=== PATIENT | male | born 1990 | race African-American/Black ===

== ENCOUNTER 2025-04-15 16:49 | Emergency (ER) | payer SELFPAY ==
[2025-04-15 17:34] LABS: ALT/SGPT 38 U/L (16-61); AST/SGOT 28 U/L (15-37); Albumin 3.9 g/dL (3.4-5.0); Albumin/Globulin Ratio 1.3 (1.1-1.8); Alkaline Phosphatase 105 U/L (45-117); Anion Gap 5.4 mEq/L (5.0-15.0); BUN Blood Urea Nitrogen 12 mg/dL (7-18); Bicarbonate 30 mEq/L (21-32); Bilirubin Total 0.3 mg/dL (0.2-1.0); Glomerular Filtration Rate 89 ml/min (=/>90); Glucose Level 100 mg/dL (74-106); Potassium 4.4 mEq/L (3.5-5.1); Protein, Total 6.9 g/dL (6.4-8.2); Sodium Level 140 mEq/L (136-145); Troponin High Sensitivity 5.4 pg/mL (<58.9)
[2025-04-15 17:36] LABS: Bilirubin Direct < 0.2 mg/dL (0-0.2); Bilirubin Indirect, Calculated 0.1 mg/dL (0.2-0.8)
[2025-04-15 17:46] LABS: Absolute Basophils 0.1 K/uL (0-0.5); Absolute Eosinophils 0.1 K/uL (0-0.5); Absolute Lymphocytes (CBC) 2.1 K/uL (0.7-4.9); Absolute Monocytes 0.6 K/uL (0.1-1.3); Absolute Neutrophil 1.4 K/uL (1.8-8.0); Basophils % 1.2 % (0-1.3); Eosinophils % 2.5 % (0-4.4); Hematocrit 39.3 % (39.6-49.0); Hemoglobin 13.6 g/dL (13.6-17.9); Lymphocytes % 49.2 % (15.3-44.8); MCH 29.9 pg (27.0-35.0); MCHC 34.6 g/dL (32.0-36.0); MCV 86.4 fL (80-100); Monocytes % 14.1 % (3.3-12.3); Nucleated Red Blood Cells % 0.2 % (0-0); Platelets 196 thou/uL (152-406); RBC Red Blood Cell Count 4.55 M/uL (4.33-5.43); Red Cell Distribution Width 14.9 % (12.1-15.2)
--- NOTE | 2025-04-15 18:50 | RAD REPORT ---
EXAMINATION: ONE VIEW CHEST XR CLINICAL INDICATION: Male, 34 years old.,CHEST PAIN TECHNIQUE: Frontal chest projection is submitted. Examination is limited by patient positioning and t echnique. COMPARISON: No prior exam. FINDINGS: The lungs are well inflated and clear. No pneumothorax or sizable effusion. The heart is normal in s ize. Mediastinal contours are unremarkable. IMPRESSION: No acute intrathoracic abnormalities.
--- NOTE | 2025-04-15 19:02 | RAD REPORT ---
EXAM: CT Head Brain Wo Cont HISTORY: Dizziness;Headache COMPARISON: None TECHNIQUE: Multiple contiguous axial images were obtained for a CT of the brain without contrast. Sag ittal and coronal reformats were performed. One or more of the following dose reduction techniques were used: Automated exposure control, adjus tment of the mA and kV according to patient size, and iterative reconstruction. Unless otherwise specified, incidental findings do not require dedicated imaging follow-up. FINDINGS: No evidence of hydrocephalus, intracranial hemorrhage, or extra-axial fluid collection. The brain is normal in morphology. The calvarium is intact. The visualized paranasal sinuses and mastoid air cells are essentially clear . IMPRESSION: No evidence of acute intracranial abnormality.
--- NOTE | 2025-04-15 19:24 | ER ---
Nurse's Notes [facility] [place] Name: Oleg Wilson Age: 34 yrs Sex: Male : 1990 Arrival Date: 04/15/2025 Time: 16:49 Bed 14 Private MD: Diagnosis: Sciatica, left side;Chest pain, unspecified;Headache Presentation: 04/15 16:54 Chief complaint: EMS states: LEFT LEG NUMBNESS X 2 DAYS . STRAINED QUAD LEFT LEG 3 db WEEKS AGO. Coronavirus screen: Client denies travel out of the [place] in the last 14 days. At this time, the client does not indicate any symptoms associated with coronavirus-19. Ebola Screen: Patient negative for fever greater than or equal to 101.5 degrees Fahrenheit, and additional compatible Ebola Virus Disease symptoms Patient denies exposure to infectious person. Patient denies travel to an Ebola-affected area in the 21 days before illness onset. No symptoms or risks identified at this time. Initial Sepsis Screen: Does the patient meet any 2 criteria? No. Patient's initial sepsis screen is negative. Does the patient have a suspected source of infection? No. Patient's initial sepsis screen is negative. Risk Assessment: Do you want to hurt yourself or someone else? Patient reports no desire to harm self or others. Onset of symptoms was April 15, 2025. 16:54 Method Of Arrival: EMS: [facility] db 16:54 Acuity: KASHIF 3 db Triage Assessment: 16:55 General: Appears in no apparent distress. uncomfortable, Behavior is calm, cooperative. db Pain: Complains of pain in left leg. Neuro: Level of Consciousness is awake, alert, obeys commands, Oriented to person, place, time, situation. Respiratory: Airway is patent Respiratory effort is even, unlabored, Respiratory pattern is regular, symmetrical. Historical: - Allergies: 16:55 No Known Allergies; db - PMHx: 16:55 GASTRIC ULCERS; db - Immunization history:: Adult Immunizations unknown. - Infectious Disease History:: Denies. - Social history:: Smoking status: Patient reports the use of cigarette tobacco products, smokes one-half pack cigarettes per day. Screenin:15 [facility] ED Fall Risk Assessment (Adult) History of falling in the last 3 months, kj2 including since admission No falls in past 3 months (0 pts) Confusion or Disorientation No (0 pts) Intoxicated or Sedated No (0 pts) Impaired Gait No (0 pts) Mobility Assist Device Used No (0 pt) Altered Elimination No (0 pt) Score/Fall Risk Level 0 - 2 = Low Risk Maintained a safe environment, Hourly rounding (assess needs \T\ fall precautionary measures) done. Abuse screen: Denies threats or abuse. Denies injuries from another. Nutritional screening: No deficits noted. Tuberculosis screening: No symptoms or risk factors identified. Assessment: 18:15 General: Appears in no apparent distress. uncomfortable, Behavior is cooperative. Pain: kj2 Complains of pain in left leg Pain currently is 8 out of 10 on a pain scale. Neuro: Level of Consciousness is awake, alert, obeys commands, Oriented to person, place, time, situation. Cardiovascular: Patient's skin is warm and dry. Respiratory: Airway is patent Respiratory effort is even, unlabored. GI: No signs and/or symptoms were reported involving the gastrointestinal system. : No signs and/or symptoms were reported regarding the genitourinary system. 18:53 Reassessment: Patient appears in no apparent distress at this time. Patient and/or kj2 family updated on plan of care and expected duration. Pain level reassessed. Patient is alert, oriented x 3, equal unlabored respirations, skin warm/dry/pink. 19:25 Reassessment: Patient appears in no apparent distress at this time. Patient and/or kj2 family updated on plan of care and expected duration. Pain level reassessed. Patient is alert, oriented x 3, equal unlabored respirations, skin warm/dry/pink. 19:46 Reassessment: Patient appears in no apparent distress at this time. Patient and/or kj2 family updated on plan of care and expected duration. Pain level reassessed. Patient is alert, oriented x 3, equal unlabored respirations, skin warm/dry/pink. 20:00 Reassessment: awaiting transportation to [facility]. kj2 20:35 Reassessment: transportation arrived. [facility] Vital Signs: 16:54 BP 143 / 86; Pulse 70; Resp 16; Temp 98.1; Pulse Ox 96% ; Weight 96.16 kg; Height 6 ft. db 0 in. ; 18:52 BP 145 / 73; Pulse 60; Resp 18; Pulse Ox 100% ; kj2 19:26 BP 134 / 90; Pulse 57; Resp 20; Temp 98; Pulse Ox 100% ; kj2 16:54 Body Mass Index 28.75 (96.16 kg, 182.88 cm) db ED Course: 16:51 Patient arrived in ED. kb 16:51 [facility]C [facility] kb 16:51 Paramjit Gilliam DO is Attending Physician. kb 16:55 Triage completed. db 16:55 Arm band placed on. db 17:08 Basic Metabolic Panel Sent. bc6 17:08 CBC with Diff Sent. bc6 17:08 LFT's Sent. bc6 17:08 Magnesium Sent. bc6 17:08 Troponin HS Sent. bc6 17:08 Initial lab(s) drawn, by me, sent to lab. Inserted saline lock: 20 gauge in left bc6 antecubital area, using aseptic technique. Blood collected. Flushed with 10 mL NS. 17:14 XRAY Chest (1 view) In Process Unspecified. EDMS 17:19 CT Head Brain wo Cont In Process Unspecified. EDMS 18:15 Patient has correct armband on for positive identification. Provided Education on: call kj2 light. 18:21 Rebekah Alegria, RN is Primary Nurse. kj2 19:48 No provider procedures requiring assistance completed. IV discontinued, intact, kj2 bleeding controlled, No redness/swelling at site. Pressure dressing applied. Administered Medications: 19:35 Drug: Decadron - Dexamethasone IVP 10 mg IVP once Route: IVP; Site: left antecubital; kj2 19:47 Follow up: Response: Medication administered at discharge. kj2 19:35 Drug: Ketorolac IVP 15 mg IVP once Route: IVP; Site: left antecubital; kj2 19:47 Follow up: Response: Medication administered at discharge. kj2 Medication: 18:36 VIS not applicable for this client. kj2 Outcome: 19:23 Discharge ordered by . kb 19:48 Discharged to home ambulatory, kj2 19:48 Condition: stable 19:48 Discharge instructions given to patient, Instructed on discharge instructions, follow up and referral plans. Demonstrated understanding of instructions, follow-up care, 20:36 Patient left the ED. kj2 Signatures: Dispatcher [employer] EDMS Roselia Cheek FNP-C PHOTOGRAPHY COORDINATOR-Ckb Roz Sanchez, RN RN db Heidi King bc6 Rebekah Alegria, RN RN kj2
--- NOTE | 2025-04-15 19:24 | EDPHYS ---
Physician Documentation [facility] Name: Oleg Wilson Age: 34 yrs Sex: Male : 1990 Arrival Date: 04/15/2025 Time: 16:49 Bed 14 Private MD: ED Physician Paramjit Gilliam HPI: 04/15 17:50 This 34 yrs old Male presents to ER via EMS with complaints of Leg Pain. kb 17:50 Patient is a 34-year-old male who presents for 2 to 3-day history of numbness and kb intermittent sharp pain to left lower extremity. Also reports having headaches to the left side of his head for the past several weeks. States he is concerned about this due to previous head injury. States he also had some chest pain and dizziness yesterday upon standing. States it went away but he did have chest pain this morning as well. Currently has no dizziness, chest pain or headaches.. Historical: - Allergies: 16:55 No Known Allergies; db - PMHx: 16:55 GASTRIC ULCERS; db - Immunization history:: Adult Immunizations unknown. - Infectious Disease History:: Denies. - Social history:: Smoking status: Patient reports the use of cigarette tobacco products, smokes one-half pack cigarettes per day. ROS: 17:54 Constitutional: As per HPI kb Exam: 18:50 Constitutional: This is a well developed, well nourished patient who is awake, alert, kb and in no acute distress. Head/Face: Normocephalic, atraumatic. ENT: Moist Mucous membranes Cardiovascular: Regular rate Respiratory: Respirations even and unlabored. No increased work of breathing. Talking in full sentences Abdomen/GI: Soft, non-tender. No distention Skin: Warm, dry with normal turgor. Normal color. MS/ Extremity: Pulses equal, no cyanosis. Neurovascular intact. Full, normal range of motion. Neuro: Awake and alert, GCS 15, oriented to person, place, time, and situation. 18:50 ECG was reviewed by the Attending Physician. 18:50 Back: pain, that is moderate, of the left low back, Vital Signs: 16:54 BP 143 / 86; Pulse 70; Resp 16; Temp 98.1; Pulse Ox 96% ; Weight 96.16 kg; Height 6 ft. db 0 in. ; 18:52 BP 145 / 73; Pulse 60; Resp 18; Pulse Ox 100% ; kj2 19:26 BP 134 / 90; Pulse 57; Resp 20; Temp 98; Pulse Ox 100% ; kj2 16:54 Body Mass Index 28.75 (96.16 kg, 182.88 cm) db MDM: 16:51 Medical Screening Exam initiated kb 19:20 Differential diagnosis: acute mi, arrhythmia, PVD, sciatica. Data reviewed: vital kb signs, nurses notes. Historians other than the Patient: EMS: [facility]. Counseling: I had a detailed discussion with the patient and/or guardian regarding the historical points, exam findings, and any diagnostic results supporting the discharge/admit diagnosis, lab results, radiology results, the need for outpatient follow up, a family practitioner, a neurologist, to return to the emergency department if symptoms worsen or persist or if there are any questions or concerns that arise at home. 04/15 16:52 Order name: Basic Metabolic Panel; Complete Time: 17:37 kb 04/15 16:52 Order name: CBC with Diff; Complete Time: 17:48 kb 04/15 16:52 Order name: LFT's; Complete Time: 17:37 kb 04/15 16:52 Order name: Magnesium; Complete Time: 17:37 kb 04/15 16:52 Order name: Troponin HS; Complete Time: 17:37 kb 04/15 16:52 Order name: XRAY Chest (1 view); Complete Time: 18:57 kb 04/15 16:52 Order name: CT Head Brain wo Cont; Complete Time: 19:06 kb 04/15 16:52 Order name: Cardiac monitoring; Complete Time: 18:47 kb 04/15 16:52 Order name: EKG - Nurse/Tech; Complete Time: 18:34 kb 04/15 16:52 Order name: IV Saline Lock; Complete Time: 17:08 kb 04/15 16:52 Order name: Labs collected and sent; Complete Time: 17:08 kb 04/15 16:52 Order name: O2 Per Protocol; Complete Time: 18:34 kb 04/15 16:52 Order name: O2 Sat Monitoring; Complete Time: 18:34 kb EC:50 Rate is 62 beats/min. Rhythm is regular. QRS [place] is Normal. ID interval is normal at kb 142 msec. QRS interval is normal at 86 msec. QT interval is normal at 420 msec. Administered Medications: 19:35 Drug: Decadron - Dexamethasone IVP 10 mg IVP once Route: IVP; Site: left antecubital; kj2 19:47 Follow up: Response: Medication administered at discharge. kj2 19:35 Drug: Ketorolac IVP 15 mg IVP once Route: IVP; Site: left antecubital; kj2 19:47 Follow up: Response: Medication administered at discharge. kj2 Disposition: 20:35 I was immediately available on-site in the Emergency Department for consultation in the ms3 care of the patient. Disposition Summary: 04/15/25 19:23 Discharge Ordered Notes: Location: Home kb Condition: Stable kb Diagnosis - Sciatica, left side kb - Chest pain, unspecified kb - Headache kb Followup: kb - With: Emergency Department - When: As needed - Reason: Worsening of condition Followup: kb - With: Private Physician - When: 2 - 3 days - Reason: Recheck today's complaints, Continuance of care, Re-evaluation by your physician Discharge Instructions: - Discharge Summary Sheet kb - Nonspecific Chest Pain, Adult, [id number] kb - Sciatica, [id number] kb - General Headache Without Cause, [id number] kb Forms: - Medication Reconciliation Form kb - Antibiotic Education kb - Prescription Opioid Use kb - Patient Portal Instructions kb - Leadership Thank You Letter kb Prescriptions: - Neurontin 300 mg Oral capsule - take 1 capsule ORAL route At bedtime; 7 capsule; Refills: 0, Product Selection kb Permitted - Prednisone 20 mg Oral Tablet - take 1 tablet ORAL route once daily for 5 days; 5 tablet; Refills: 0, Product kb Selection Permitted Signatures: Dispatcher [employer] EDMS Roselia Cheek, ROSA-C BOXING MACHINE OPERATOR-Paramjit Steve DO DO ms3 Roz Sanchez RN RN db Reebkah Alegria RN RN kj2 Corrections: (The following items were deleted from the chart) 16:53 16:53 BASIC METABOLIC PANEL+C.LAB.BRZ ordered. EDMS EDMS 16:53 16:53 CBC+H.LAB.BRZ ordered. EDMS EDMS 16:53 16:53 HEPATIC FUNCTION+C.LAB.BRZ ordered. EDMS EDMS 16:53 16:53 MAGNESIUM+C.LAB.BRZ ordered. EDMS EDMS 16:53 16:53 Troponin High Sensitivity+C.LAB.BRZ ordered. EDMS EDMS 16:53 16:53 Chest Single View+RAD.RAD.BRZ ordered. EDMS EDMS 16:53 16:53 Head Brain Wo Cont+CT.RAD.BRZ ordered. EDMS EDMS 17:54 17:50 Patient is a 34-year-old male who presents for 2 to 3-day history of numbness and kb intermittent sharp pain. kb
[2025-04-15] MEDS ORDERED: dexAMETHasone 10 MG/ML VIAL ONE (19:29)
[2025-04-15] MEDS ORDERED: KETOROLAC 30 MG/ML INJ ONE (19:29)
--- OUTSIDE RECORDS SUMMARY | 2025-04-15 21:20 | XMS REPORT | Continuity of Care Document ---
Author Name Unknown Address [address] [place] [address] [address] [place] [address] [facility] Address [address] [facility] [address] [place] [address] Care Team Providers Care Reexaminer Name Role Phone SERGEI CARBALLO Attending Clinician UnavailKRIS Wasserman Attending Clinician Unavailable ELIAS ESTEBAN Attending Clinician UnavailSOLOMON Melara Attending Clinician Unavailable KRIS CARLISLE Admitting Clinician Unavailable SOLOMON SINGH Admitting Clinician Unavailable Payers Payer Name Policy Type Policy Number Effective Date Expirati on Date Source [facility] [id number] 2025 00:00:00 Encounters Start Date/Time End Date/Time Encounter Type Admission Type Attending Clinicians Care Facility Care Department Encounter ID Source 2025-03-08 12:00:00 Inpatient [facility]RA H[facility] [id number] [facility] 2025-04-01 13:10:59 2025-04-01 13:10:[address] [facility] [id number] Quirino Tejeda 2025-04-01 00:00:00 2025-04-01 00:00:00 Outpatient SERGEI CARBALLO [facility] [id number] [facility] 2025-03-08 11:13:00 2025-03-20 10:06:00 Outpatient KRIS CARLISLE [facility] [id number] [facility] 2025-03-06 21:49:00 2025-03-08 11:03:00 Emergency ELIAS ESTEBAN [facility] [id number] [facility] 2025-03-07 10:25:13 2025-03-07 10:25:13 Emergency [facility] [id number] [facility] 2025-03-06 22:17:04 2025-03-06 22:57:12 Emergency [facility] [id number] [facility] 2024-12-04 20:53:00 2024-12-09 14:38:00 Outpatient SOLOMON SINGH [facility] [id number] [facility] 2024-12-04 13:00:00 2024-12-09 12:00:00 [facility] [id number] [facility] 2019-11-04 19:39:00 2019-11-04 19:39:00 Emergency E MHNE MHNE [id number] [facility]
[2025-04-15 21:31] VITALS: O2SAT 100
[2025-04-15 21:32] VITALS: BP 134/90; TEMP 98
== END 2025-04-15 20:36 | disposition home or self-care (01) ==
LOC: ER 16:49
DX: M54.32 Sciatica, left side (principal); R07.9 Chest pain, unspecified; R51.9 Headache, unspecified; F17.210 Nicotine dependence, cigarettes, uncomplicated
CPT/HCPCS: 36415; 70450; 71045; 80048; 80076; 83735; 84484; 85025; 93005; J1100

== ENCOUNTER 2025-04-20 03:57 | Emergency (ER) | payer SELFPAY ==
--- OUTSIDE RECORDS SUMMARY | 2025-04-20 04:00 | XMS REPORT | Continuity of Care Document ---
Author Name Unknown Address [address] [place] [address] [address] [place] [address] [facility] [place] Address [address] [facility]. [address] [place] [address] Care Team Providers Care Data Input Clerk Name Role Phone SERGEI CARBALLO Attending Clinician UnavailKRIS Wasserman Attending Clinician Unavailable ELIAS ESTEBAN Attending Clinician UnavailSOLOMON Melara Attending Clinician Unavailable KRIS CARLISLE Admitting Clinician Unavailable SOLOMON SINGH Admitting Clinician Unavailable Payers Payer Name Policy Type Policy Number Effective Date Expirati on Date Source [facility] [id number] 2025 00:00:00 Encounters Start Date/Time End Date/Time Encounter Type Admission Type Attending Clinicians Care Facility Care Department Encounter ID Source 2025-03-08 12:00:00 Inpatient HHMHMRA HHM[facility]RA [id number] [facility] 2025-04-01 13:10:59 2025-04-01 13:10:59 Outpatient [facility] [id number] Quirino Tejeda 2025-04-01 00:00:00 2025-04-01 00:00:00 Outpatient SERGEI CARBALLO [facility] [id number] [facility] 2025-03-08 11:13:00 2025-03-20 10:06:00 Outpatient KRIS CARLISLE [facility] [id number] [facility] 2025-03-06 21:49:00 2025-03-08 11:03:00 Emergency ELIAS ESTEBAN [facility] [id number] [facility] 2025-03-07 10:25:13 2025-03-07 10:25:13 Emergency [facility] [id number] [facility] 2025-03-06 22:17:04 2025-03-06 22:57:12 Emergency [facility] [id number] [facility] 2024-12-04 20:53:00 2024-12-09 14:38:00 Outpatient SOLOMON SINGH [facility] [id number] [facility] 2024-12-04 13:00:00 2024-12-09 12:00:00 Inpatient [facility] [id number] [facility] 2019-11-04 19:39:00 2019-11-04 19:39:00 Emergency E MHNE MHNE 7502 MHNE
[2025-04-20] MEDS ORDERED: METHYLPREDNISOLONE 125 MG INJ ONE (04:23)
[2025-04-20] MEDS ORDERED: ALBUTEROL 2.5 MG/3 ML NEB SOL ONE ×2 (04:23→07:46)
[2025-04-20] MEDS ORDERED: IPRATROPIUM BROM 0.5MG/2.5ML ONE ×2 (04:23→07:46)
[2025-04-20] MEDS ORDERED: DIPHENHYDRAMINE 50 MG/ML VIAL ONE (04:24)
[2025-04-20] MEDS ORDERED: Magnesium Sulfate 2gm IVPB 2 G/50 ML BAG IV ONE (04:24)
[2025-04-20] MEDS ORDERED: KETOROLAC 30 MG/ML INJ ONE (04:24)
[2025-04-20] MEDS ORDERED: GUAIFENESIN/DM 5 ML UCUP ONE (04:24)
[2025-04-20 04:46] LABS: ALT/SGPT 43 U/L (16-61); AST/SGOT 64 U/L (15-37); Albumin 3.5 g/dL (3.4-5.0); Albumin/Globulin Ratio 1.1 (1.1-1.8); Alkaline Phosphatase 94 U/L (45-117); Anion Gap 6.8 mEq/L (5.0-15.0); BUN Blood Urea Nitrogen 10 mg/dL (7-18); Bicarbonate 29 mEq/L (21-32); Bilirubin Total 0.3 mg/dL (0.2-1.0); Globulin 3.1 g/dL (2.3-3.5); Glomerular Filtration Rate 102 ml/min (=/>90); Glucose Level 79 mg/dL (74-106); Potassium 3.8 mEq/L (3.5-5.1); Protein, Total 6.6 g/dL (6.4-8.2); Sodium Level 140 mEq/L (136-145)
[2025-04-20 05:02] LABS: Absolute Basophils 0.1 K/uL (0-0.5); Absolute Eosinophils 0.1 K/uL (0-0.5); Absolute Lymphocytes (CBC) 1.7 K/uL (0.7-4.9); Absolute Monocytes 0.9 K/uL (0.1-1.3); Basophils % 0.9 % (0-1.3); Eosinophils % 2.1 % (0-4.4); Hematocrit 39.5 % (39.6-49.0); Hemoglobin 13.7 g/dL (13.6-17.9); Lymphocytes % 29.4 % (15.3-44.8); MCHC 34.6 g/dL (32.0-36.0); MCV 86.8 fL (80-100); Monocytes % 15.5 % (3.3-12.3); Neutrophils % 52.1 % (41.7-73.7); Nucleated Red Blood Cells % 0.1 % (0-0); Platelets 177 thou/uL (152-406); RBC Red Blood Cell Count 4.55 M/uL (4.33-5.43); Red Cell Distribution Width 14.8 % (12.1-15.2)
[2025-04-20 05:06] LABS: Bilirubin Direct < 0.2 mg/dL (0-0.2); Bilirubin Indirect, Calculated 0.1 mg/dL (0.2-0.8)
--- NOTE | 2025-04-20 06:00 | RAD REPORT ---
EXAM DESCRIPTION: Chest Single View RadLex: XR CHEST 1 VIEW CLINICAL HISTORY: 34 years Male, CHEST PAIN COMPARISON: None. FINDINGS: Single portable AP upright view of the chest. Cardiac silhouette is not significantly enlarged given AP technique. No consolidation. No pleural effusion or pneumothorax. No acute osseous abnormality. IMPRESSION: No acute radiographic abnormality. Electronically signed by: Elizabeth Farmer MD 04/20/2025 05:30 AM CDT RP Due to temporary technical issues with the PACS/[employer] reporting system, reports are being tim d by the in-house radiologist without review as a courtesy to ensure prompt reporting the interpreting radiologist is fully responsible for the content of the report. Transcribed Date/Time: 04/20/2025 6:00 AM
--- NOTE | 2025-04-20 07:09 | EDPHYS ---
Physician Documentation [facility] Name: Oleg Wilson Age: 34 yrs Sex: Male : 1990 Arrival Date: 04/20/2025 Time: 03:57 Bed 7 Private MD: ED Physician Casey Atkins HPI: 04/20 04:10 This 34 yrs old Black Male presents to ER via EMS with complaints of Breathing sp4 Difficulty. 04:43 34-year-old male presents with acute breathing difficulty from [facility] to sp4 rehab. Patient states he has been there for 30 days. 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 Patient reported 3 days of difficulty breathing, wheezing, throat discomfort. Sensation of closing throat as well.. 04/21 03:56 Patient presents with acute onset wheezing and respiratory trouble. sp4 Historical: - Allergies: 04/20 04:03 No Known Allergies; bm8 - Home Meds: 04:03 gabapentin 300 mg oral capsule 1 cap daily [Active]; Seroquel 300 mg Oral tablet 1 tab bm8 daily [Active]; - PMHx: 04:03 gastric ulcers; Bipolar disorder; bm8 - PSHx: 04:03 None; bm8 - Immunization history:: Adult Immunizations up to date. - Infectious Disease History:: Denies. - Social history:: Smoking status: Patient reports the use of cigarette tobacco products, smokes one-half pack cigarettes per day, Patient/guardian denies using alcohol, street drugs. - Family history:: not pertinent. ROS: 04:43 Constitutional: Negative for fever, chills, and weight loss, positive dyspnea, positive sp4 sensation of closing throat, positive sore throat, positive wheezing 04:43 All other systems are negative, Exam: 04:43 Constitutional: This is a well developed, well nourished patient who is awake, alert, sp4 and in no acute distress. Head/Face: Normocephalic, atraumatic. Eyes: Pupils equal round and reactive to light, extra-ocular motions intact. Lids and lashes normal. Conjunctiva and sclera are not injected. Cornea within normal limits. Periorbital areas with no swelling, redness, or edema. ENT: Nares patent. No nasal discharge, no septal abnormalities noted. Tympanic membranes are normal and external auditory canals are clear. Oropharynx with bilateral pharyngeal erythema without tonsillar enlargement. No sign of exudate. Neck: Trachea midline, no thyromegaly or masses palpated, and no cervical lymphadenopathy. Supple, full range of motion without nuchal rigidity, or vertebral point tenderness. Chest/axilla: Normal chest wall appearance and motion. Nontender with no deformity. No lesions are appreciated. Cardiovascular: Regular rate and rhythm with a normal S1 and S2. No gallops, murmurs, or rubs. Normal PMI, no JVD. No pulse deficits. Respiratory: Lungs have equal breath sounds bilaterally, positive bilateral expiratory wheezes in all lung cannon that are mild to moderate. Abdomen/GI: Soft, with normal bowel sounds. No distension or tympany. No guarding or rebound. No evidence of tenderness throughout. Back: No spinal tenderness. No costovertebral tenderness. Skin: Warm, dry with normal turgor. Normal color with no rashes, no lesions, and no evidence of cellulitis. MS/ Extremity: Pulses equal, no cyanosis. Neurovascular intact. Full, normal range of motion. Neuro: Awake and alert, GCS 15, oriented to person, place, time, and situation. Cranial nerves II-XII grossly intact. Motor strength 5/5 in all extremities. Sensory grossly intact. Psych: Awake, alert, with orientation to person, place and time. Behavior, mood, and affect are within normal limits Vital Signs: 04:01 BP 143 / 83; Pulse 68; Resp 14; Temp 99.3; Pulse Ox 100% ; Weight 96.62 kg; Height 6 bm8 ft. 0 in. ; Pain 0/10; 05:38 BP 135 / 77; Pulse 87; Resp 18; Temp 99.3; Pulse Ox 99% on R/A; Pain 0/10; bm8 06:51 BP 139 / 70; Pulse 83; Resp 17; Pulse Ox 95% ; bm8 07:08 BP 121 / 70; Pulse 96; Resp 20; Temp 99.3; Pulse Ox 100% ; Pain 0/10; bm8 08:28 BP 135 / 72; Pulse 85; Resp 18; Pulse Ox 99% ; bp 04:01 Body Mass Index 28.89 (96.62 kg, 182.88 cm) 8 04:01 Pain Scale: Adult bm8 05:38 Pain Scale: Adult bm8 07:08 Pain Scale: Adult bm8 Bry Coma Score: 04:07 Eye Response: spontaneous(4). Motor Response: obeys commands(6). Verbal Response: bm8 oriented(5). Total: 15. 04:43 Eye Response: spontaneous(4). Motor Response: obeys commands(6). Verbal Response: sp4 oriented(5). Total: 15. 05:38 Eye Response: spontaneous(4). Motor Response: obeys commands(6). Verbal Response: bm8 oriented(5). Total: 15. 07:08 Eye Response: spontaneous(4). Motor Response: obeys commands(6). Verbal Response: bm8 oriented(5). Total: 15. MDM: 06:45 Medical Screening Exam initiated 04/21 03:56 Differential diagnosis: Anxiety Reaction asthma, Bronchitis Chronic Obstructive sp4 Pulmonary Disease pneumonia, Psychogenic. Data reviewed: vital signs, nurses notes, lab test result(s). 03:57 Data reviewed: radiologic studies. ED course: Wheezing has resolved. Patient stable for 4 discharge home. 04/20 04:08 Order name: Basic Metabolic Panel; Complete Time: 07:02 [facility] 04/20 04:08 Order name: CBC with Diff; Complete Time: 07:02 [facility] 04/20 04:08 Order name: LFT's; Complete Time: 07:02 [facility] 04/20 04:08 Order name: XRAY Chest (1 view); Complete Time: 07:02 [facility] 04/20 04:08 Order name: IV Saline Lock; Complete Time: 04:35 [facility] 04/20 04:08 Order name: Labs collected and sent; Complete Time: 04:36 [facility] 04/20 04:08 Order name: O2 Per Protocol; Complete Time: 04:36 [facility] 04/20 04:08 Order name: O2 Sat Monitoring; Complete Time: 04:36 4 Administered Medications: 04/20 04:34 Drug: Ketorolac IVP 30 mg IVP once Route: IVP; Site: right antecubital; bm8 05:37 Follow up: Response: No adverse reaction bm8 04:34 Drug: diphenhydrAMINE IVP 25 mg IVP once Route: IVP; Site: right antecubital; bm8 05:36 Follow up: Response: No adverse reaction bm8 04:35 Drug: Magnesium Sulfate IVPB 2 grams IVPB once over 2 hrs Route: IVPB; Infused Over: 2 bm8 hrs; Site: right antecubital; 05:38 Follow up: Response: No adverse reaction; IV Status: Completed infusion bm8 04:35 Drug: Albuterol Inhalation 2.5 mg Inhalation every 20 minutes x3 Route: Inhalation; bm8 04:35 Drug: Ipratropium Inhalation Aerosol 0.5 mg Inhalation once; Every 20 min for a total bm8 of 3 treatments x3 Route: Inhalation; 04:35 Drug: MethylPREDNISolone Sodium Succinate IM 125 mg IM once Route: IM; Site: right bm8 deltoid; 05:37 Follow up: Response: No adverse reaction bm8 04:35 Drug: Dextromethorphan-Guaifenesin PO Liquid 10 mg-100 mg/5 mL 10 ml PO once Route: PO; bm8 05:37 Follow up: Response: No adverse reaction bm8 05:03 Drug: Albuterol Inhalation 2.5 mg Inhalation every 20 minutes x3 Route: Inhalation; bm8 05:03 Drug: Ipratropium Inhalation Aerosol 0.5 mg Inhalation once; Every 20 min for a total bm8 of 3 treatments x3 Route: Inhalation; 05:20 Drug: Albuterol Inhalation 2.5 mg Inhalation every 20 minutes x3 Route: Inhalation; bm8 05:37 Follow up: Response: No adverse reaction bm8 05:20 Drug: Ipratropium Inhalation Aerosol 0.5 mg Inhalation once; Every 20 min for a total bm8 of 3 treatments x3 Route: Inhalation; 05:37 Follow up: Response: No adverse reaction bm8 07:30 Drug: Albuterol Inhalation 2.5 mg Inhalation once Route: Inhalation; bp 07:30 Drug: Ipratropium Inhalation Aerosol 0.5 mg Inhalation once Route: Inhalation; bp Disposition: 04/21 03:57 Chart complete. sp4 Disposition Summary: 04/20/25 07:08 Discharge Ordered Notes: Location: Home sp4 Problem: new sp4 Symptoms: have improved sp4 Condition: Stable sp4 Diagnosis - Acute wheezing, acute viral bronchitis, acute viral upper respiratory infection sp4 - Wheezing sp4 Followup: sp4 - With: Private Physician - When: 7 - 10 days - Reason: Recheck today's complaints Discharge Instructions: - Discharge Summary Sheet sp4 - Viral Respiratory Infection sp4 Forms: - Patient Portal Instructions sp4 Prescriptions: - Nebulizer with Adult Mask - 0 Dispense One Nebulizer with adult mask , use with albuterol as directed; ; sp4 Refills: 0, Product Selection Permitted - dextromethorphan-guaifenesin 20-400 mg Oral tablet - take 1 tablet ORAL route every 4 hours as needed for cough; 60 tablet; Refills: sp4 0, Product Selection Permitted - Albuterol Sulfate 2.5 mg /3 mL (0.083 %) Inhalation Solution for Nebulization - inhale 1 unit NEBULIZATION route every 8 hours As needed 50 vials , Use sp4 Nebulized every 4 hours PNR wheezing; 50 unit; Refills: 0, Product Selection Permitted - Prednisone 20 mg Oral Tablet - take 2 tablets ORAL route once daily for 5 days; 10 tablet; Refills: 0, Product sp4 Selection Permitted Signatures: Dispatcher [employer] Braydon Marie, RN RN bp Casey Atkins MD MD sp4 Bj Black RN RN bm8 Corrections: (The following items were deleted from the chart) 04/20 04:09 04:09 BASIC METABOLIC PANEL+C.LAB.BRZ ordered. EDMS EDMS 04:09 04:09 CBC+H.LAB.BRZ ordered. EDMS EDMS 04:09 04:09 HEPATIC FUNCTION+C.LAB.BRZ ordered. EDMS EDMS
--- NOTE | 2025-04-20 07:09 | ER ---
Nurse's Notes [facility] Name: Oleg Wilson Age: 34 yrs Sex: Male : 1990 Arrival Date: 04/20/2025 Time: 03:57 Bed 7 Private MD: Diagnosis: Acute wheezing, acute viral bronchitis, acute viral upper respiratory infection;Wheezing Presentation: 04/20 04:01 Chief complaint: Patient states: I have had shortness of breath for 2 days with n/v , bm8 chills, and muscle cramps. Coronavirus screen: At this time, the client does not indicate any symptoms associated with coronavirus-19. Ebola Screen: Patient negative for fever greater than or equal to 101.5 degrees Fahrenheit, and additional compatible Ebola Virus Disease symptoms Patient denies exposure to infectious person. Patient denies travel to an Ebola-affected area in the 21 days before illness onset. No symptoms or risks identified at this time. Initial Sepsis Screen: Does the patient meet any 2 criteria? No. Patient's initial sepsis screen is negative. Does the patient have a suspected source of infection? No. Patient's initial sepsis screen is negative. Risk Assessment: Do you want to hurt yourself or someone else? Patient reports no desire to harm self or others. Onset of symptoms was April 18, 2025. 04:01 Method Of Arrival: EMS: [facility] bm8 04:01 Acuity: KASHIF 2 bm8 Triage Assessment: 04:03 General: Appears in no apparent distress. comfortable, Behavior is calm, cooperative, bm8 appropriate for age. Pain: Denies pain. EENT: No deficits noted. No signs and/or symptoms were reported regarding the EENT system. Neuro: No deficits noted. Level of Consciousness is awake, alert, obeys commands, Oriented to person, place, time, situation, Appropriate for age. Cardiovascular: Reports shortness of breath, Denies chest pain, Heart tones S1 S2 present. Respiratory: Reports shortness of breath cough that is Breath sounds with crackles bilaterally. Onset: The symptoms/episode began/occurred 2 days, the patient has moderate shortness of breath. GI: Reports nausea, vomiting. : No signs and/or symptoms were reported regarding the genitourinary system. Derm: No signs and/or symptoms reported regarding the dermatologic system. Musculoskeletal: No signs and/or symptoms reported regarding the musculoskeletal system. Historical: - Allergies: 04:03 No Known Allergies; bm8 - Home Meds: 04:03 gabapentin 300 mg oral capsule 1 cap daily [Active]; Seroquel 300 mg Oral tablet 1 tab bm8 daily [Active]; - PMHx: 04:03 gastric ulcers; Bipolar disorder; bm8 - PSHx: 04:03 None; bm8 - Immunization history:: Adult Immunizations up to date. - Infectious Disease History:: Denies. - Social history:: Smoking status: Patient reports the use of cigarette tobacco products, smokes one-half pack cigarettes per day, Patient/guardian denies using alcohol, street drugs. - Family history:: not pertinent. Screenin:07 [facility] ED Fall Risk Assessment (Adult) History of falling in the last 3 months, bm8 including since admission No falls in past 3 months (0 pts) Confusion or Disorientation No (0 pts) Intoxicated or Sedated No (0 pts) Impaired Gait No (0 pts) Mobility Assist Device Used No (0 pt) Altered Elimination No (0 pt) Score/Fall Risk Level 0 - 2 = Low Risk Oriented to surroundings, Maintained a safe environment, Educated pt \T\ family on fall prevention, incl call for assistance when getting out of bed, Provided non-skid footwear, Hourly rounding (assess needs \T\ fall precautionary measures) done, Used ambulatory aids as needed (educated on \T\ assisted with), Used gait belt as appropriate. Abuse screen: Denies threats or abuse. Nutritional screening: No deficits noted. Tuberculosis screening: No symptoms or risk factors identified. Assessment: 04:07 Cardiovascular: Rhythm is sinus rhythm. bm8 05:38 Reassessment: Patient appears in no apparent distress at this time. Patient and/or bm8 family updated on plan of care and expected duration. Pain level reassessed. Patient is alert, oriented x 3, equal unlabored respirations, skin warm/dry/pink. Patient denies pain at this time. Patient states feeling better. Patient states symptoms have improved. Neuro: No deficits noted. Level of Consciousness is awake, alert, obeys commands, Oriented to person, place, time, situation, Appropriate for age. Cardiovascular: Denies chest pain, Heart tones S1 S2 present Capillary refill < 3 seconds in bilateral fingers Patient's skin is warm and dry. Rhythm is sinus rhythm. Respiratory: Airway is patent Trachea midline Respiratory effort is even, unlabored, Respiratory pattern is regular, symmetrical, Breath sounds are clear bilaterally. GI: No signs and/or symptoms were reported involving the gastrointestinal system. : No signs and/or symptoms were reported regarding the genitourinary system. EENT: No signs and/or symptoms were reported regarding the EENT system. Derm: No signs and/or symptoms reported regarding the dermatologic system. Musculoskeletal: No signs and/or symptoms reported regarding the musculoskeletal system. 07:08 Reassessment: Patient appears in no apparent distress at this time. Patient and/or bm8 family updated on plan of care and expected duration. Pain level reassessed. Patient is alert, oriented x 3, equal unlabored respirations, skin warm/dry/pink. Patient denies pain at this time. Respiratory: Breath sounds are diminished bilaterally. Vital Signs: 04:01 BP 143 / 83; Pulse 68; Resp 14; Temp 99.3; Pulse Ox 100% ; Weight 96.62 kg; Height 6 bm8 ft. 0 in. ; Pain 0/10; 05:38 BP 135 / 77; Pulse 87; Resp 18; Temp 99.3; Pulse Ox 99% on R/A; Pain 0/10; bm8 06:51 BP 139 / 70; Pulse 83; Resp 17; Pulse Ox 95% ; bm8 07:08 BP 121 / 70; Pulse 96; Resp 20; Temp 99.3; Pulse Ox 100% ; Pain 0/10; bm8 08:28 BP 135 / 72; Pulse 85; Resp 18; Pulse Ox 99% ; bp 04:01 Body Mass Index 28.89 (96.62 kg, 182.88 cm) bm8 04:01 Pain Scale: Adult bm8 05:38 Pain Scale: Adult bm8 07:08 Pain Scale: Adult bm8 Warren Coma Score: 04:07 Eye Response: spontaneous(4). Motor Response: obeys commands(6). Verbal Response: bm8 oriented(5). Total: 15. 04:43 Eye Response: spontaneous(4). Motor Response: obeys commands(6). Verbal Response: sp4 oriented(5). Total: 15. 05:38 Eye Response: spontaneous(4). Motor Response: obeys commands(6). Verbal Response: bm8 oriented(5). Total: 15. 07:08 Eye Response: spontaneous(4). Motor Response: obeys commands(6). Verbal Response: bm8 oriented(5). Total: 15. ED Course: 03:58 Patient arrived in ED. [id number] 03:59 Patient has correct armband on for positive identification. Bed in low position. Call km10 light in reach. Side rails up X2. Client placed on continuous cardiac and pulse oximetry monitoring. NIBP monitoring applied. termite inspector on. Pillow given. 04:03 Triage completed. bm8 04:03 Arm band placed on right wrist. bm8 04:07 No provider procedures requiring assistance completed. Patient maintains SpO2 bm8 saturation greater than 95% on room air. 04:08 Casey Atkins MD is Attending Physician. sp4 04:20 Initial lab(s) drawn, by me, sent to lab. bm8 04:20 Initial Neb Treatment Given as ordered Patient was instructed and evaluated on bm8 procedure. Inserted saline lock: 20 gauge in right antecubital area, using aseptic technique. Blood collected. Flushed with 10 mL NS. 04:38 Bj Black, RN is Primary Nurse. bm8 04:58 XRAY Chest (1 view) In Process Unspecified. EDMS 05:38 Provided Education on: post er care. bm8 08:29 IV discontinued, intact, bleeding controlled, No redness/swelling at site. Pressure bp dressing applied. Administered Medications: 04:34 Drug: Ketorolac IVP 30 mg IVP once Route: IVP; Site: right antecubital; bm8 05:37 Follow up: Response: No adverse reaction bm8 04:34 Drug: diphenhydrAMINE IVP 25 mg IVP once Route: IVP; Site: right antecubital; bm8 05:36 Follow up: Response: No adverse reaction bm8 04:35 Drug: Magnesium Sulfate IVPB 2 grams IVPB once over 2 hrs Route: IVPB; Infused Over: 2 bm8 hrs; Site: right antecubital; 05:38 Follow up: Response: No adverse reaction; IV Status: Completed infusion bm8 04:35 Drug: Albuterol Inhalation 2.5 mg Inhalation every 20 minutes x3 Route: Inhalation; bm8 04:35 Drug: Ipratropium Inhalation Aerosol 0.5 mg Inhalation once; Every 20 min for a total bm8 of 3 treatments x3 Route: Inhalation; 04:35 Drug: MethylPREDNISolone Sodium Succinate IM 125 mg IM once Route: IM; Site: right bm8 deltoid; 05:37 Follow up: Response: No adverse reaction bm8 04:35 Drug: Dextromethorphan-Guaifenesin PO Liquid 10 mg-100 mg/5 mL 10 ml PO once Route: PO; bm8 05:37 Follow up: Response: No adverse reaction bm8 05:03 Drug: Albuterol Inhalation 2.5 mg Inhalation every 20 minutes x3 Route: Inhalation; bm8 05:03 Drug: Ipratropium Inhalation Aerosol 0.5 mg Inhalation once; Every 20 min for a total bm8 of 3 treatments x3 Route: Inhalation; 05:20 Drug: Albuterol Inhalation 2.5 mg Inhalation every 20 minutes x3 Route: Inhalation; bm8 05:37 Follow up: Response: No adverse reaction bm8 05:20 Drug: Ipratropium Inhalation Aerosol 0.5 mg Inhalation once; Every 20 min for a total bm8 of 3 treatments x3 Route: Inhalation; 05:37 Follow up: Response: No adverse reaction bm8 07:30 Drug: Albuterol Inhalation 2.5 mg Inhalation once Route: Inhalation; bp 07:30 Drug: Ipratropium Inhalation Aerosol 0.5 mg Inhalation once Route: Inhalation; bp Medication: 04:07 VIS not applicable for this client. bm8 Outcome: 07:08 Discharge ordered by . sp4 08:29 Discharged to home ambulatory, bp 08:29 Condition: stable 08:29 Discharge instructions given to patient, Instructed on discharge instructions, follow up and referral plans. medication usage, Demonstrated understanding of instructions, follow-up care, medications, Prescriptions given X 4, 08:29 Patient left the ED. bp Signatures: Dispatcher [employer] EDMS Braydon Cheatham RN RN bp Ele Weldon Sergey, MD MD sp4 Bj Black RN RN bm8 Judith Taylor RN RN [id number] Corrections: (The following items were deleted from the chart) 04:36 03:59 Judith Taylor RN is Primary Nurse. km10 bm8
[2025-04-20 08:56] VITALS: TEMP 99.3
[2025-04-20 08:58] VITALS: BP 135/72; O2SAT 99
== END 2025-04-20 08:29 | disposition home or self-care (01) ==
LOC: ER 03:57
DX: J20.8 Acute bronchitis due to other specified organisms (principal); J06.9 Acute upper respiratory infection, unspecified; F17.210 Nicotine dependence, cigarettes, uncomplicated
CPT/HCPCS: 36415; 71045; 80048; 80076; 85025; 94640; 96365; 96372; 96375; 99285; J1200; J2919; J3475; J7613; J7644